=== PATIENT | female | born 1980 | race African-American/Black ===

== ENCOUNTER → 2016-12-22 | Outpatient (CLI) | payer OTHER ==
--- NOTE | ~2016-12-22 | CR172 ---
[facility]. [facility] A Service of [facility] RADIOLOGY TEXT RESULTS PATIENT: MARYBETH MOE LOCATION: [facility] : 80 UNIT #: [id number] AGE: [address]: Kyara Aparicio MD SEX: F ORDER DR: [id number] [address] [address] [id number] O MR#: [id number] Acc #: [id number] NAME: MARYBETH MOE : 1980 SEX: F STUDY DATE/TIME: 12/22/2016 15:31 UNIT: [facility] ROOM: STUDY DESCRIPTION: CR Knee 3 Views Lt Attending Physician: Kyara Aparicio M.D. Referring Physician: Kyara Aparicio M.D. Ordering Physician: Kyara Aparicio M.D. Primary Care Physician: Kyara Aparicio M.D. MEDICAL IMAGING REPORT This report is preliminary unless electronic signature is present. EXAM Left knee HISTORY Left knee pain for a week. FINDINGS AP, lateral and sunrise views of the left knee were obtained. There is degenerative spurring at the patellofemoral joint and there is some osteophyte formation from the medial and lateral femoral condyles into the lateral tibial plateau. No fracture or effusion is identified. IMPRESSION Moderate degenerative change involving patellofemoral joints, medial and lateral joint compartments. There is no fracture or effusion. Dictated by... Home Conner M.D. THIS IS AN ELECTRONICALLY VERIFIED REPORT Home Conner M.D. at 12/23/2016 8:52 AM FEL/pcl TD: 12/22/2016 17:13 JOB #: [id number] MEDICAL IMAGING REPORT Page 1 of 1
== END | disposition home or self-care (01) ==
LOC: SRAD 14:38
DX: M25.562 Pain in left knee (principal); M19.012 Primary osteoarthritis, left shoulder
CPT/HCPCS: 73562